=== PATIENT | female | born 1975 | race Caucasian/White ===

== ENCOUNTER 2019-10-11 13:09 | Outpatient (CLI) | payer BC ==
--- NOTE | 2019-10-11 14:17 | ULT ---
EXAM: Pelvic ultrasound HISTORY: Pelvic pain and bleeding COMPARISON: None TECHNIQUE: Multiple grayscale and color Doppler images were obtained in a transabdominal and transvag inal pelvic ultrasound. Spectral analysis of the Doppler waveforms of the ovaries were performed. FINDINGS: CERVIX: No evidence of nabothian cysts. UTERUS: Normal in size. A small heterogeneous area in the anterior fundal wall measuring 1.6 cm in si ze could represent a small fibroid. ENDOMETRIAL STRIPE: 12 mm. No free fluid is seen in the pelvis. RIGHT OVARY: Normal flow without focal mass. LEFT OVARY: Normal flow without focal mass. IMPRESSION: Questionable small uterine fibroid
== END 2019-10-11 13:10 | disposition home or self-care (01) ==
LOC: SCSULT 13:09
PROVIDERS: ATTEND Nurse Practitioner Family
DX: R10.2 Pelvic and perineal pain (principal); N93.9 Abnormal uterine and vaginal bleeding, unspecified
CPT/HCPCS: 76856

== ENCOUNTER 2019-11-24 14:21 | Outpatient (CLI) | payer BC ==
--- NOTE | 2019-12-12 10:30 | MMO ---
Bilateral MAMMO Bilat Screen [facility]. CLINICAL HISTORY: Patient is 44 years old and is seen for screening. The patient has no family history of breast cancer. The patient has no personal history of cancer. VIEWS: The views performed were: bilateral craniocaudal with tomosynthesis and bilateral mediolateral oblique with tomosynthesis. This study has been interpreted with the assistance of computer-aided detection. MAMMOGRAM FINDINGS: The breasts are heterogeneously dense, which could obscure a lesion on mammography. There is a round mass measuring 13 millimeters with circumscribed margins seen in the lower-outer region of the left breast. In the right breast, there are no suspicious masses, calcifications or areas of architectural distortion. IMPRESSION: MASS IN THE LEFT BREAST REQUIRES ADDITIONAL EVALUATION. AN ULTRASOUND EXAM IS RECOMMENDED. THE RESULTS OF THIS EXAM WERE SENT TO THE PATIENT. ACR BI-RADS Category 0 - Incomplete: Need additional imaging evaluation. [facility] will notify the patient of the need for additional imaging services. MAMMOGRAPHY NOTE: 1. A negative mammogram report should not delay a biopsy if a dominant of clinically suspicious mass is present. 2. Approximately 10% to 15% of breast cancers are not detected by mammography. 3. Adenosis and dense breasts may obscure an underlying neoplasm. Reported by: AZUL VIZCAINO MD Electonically Signed: [id number]
== END 2019-11-24 14:22 | disposition home or self-care (01) ==
LOC: BICMAMMO 14:21
PROVIDERS: ATTEND Family Medicine
DX: Z12.31 Encounter for screening mammogram for malignant neoplasm of breast (principal); N63.20 Unspecified lump in the left breast, unspecified quadrant
CPT/HCPCS: 77063; 77067

== ENCOUNTER 2020-02-15 10:49 | Outpatient (CLI) | payer BC ==
--- NOTE | 2020-02-15 11:08 | ULT ---
EXAM: US Breast Limited Lt PROVIDED CLINICAL HISTORY: Abnormal screening mammogram COMPARISON: Screening mammogram 11/24/2019 FINDINGS: Limited sonographic interrogation was performed of the lower outer left breast in the region of mammo graphic concern. There are 2 adjacent simple cysts at the 4:00 position of the left breast, in aggregate measuring about 1.4 cm. This corresponds to the mammogram finding. No concerning sonographi c abnormalities are evident. IMPRESSION: Ultrasound reveals simple cysts corresponding to the mammogram finding. Return to annual screening ma mmography recommended. BI-RADS 2 -- benign findings
== END 2020-02-15 10:50 | disposition home or self-care (01) ==
LOC: BICULT 10:49
PROVIDERS: ATTEND Family Medicine
DX: N63.23 Unspecified lump in the left breast, lower outer quadrant (principal); N60.02 Solitary cyst of left breast

== ENCOUNTER 2021-02-13 14:25 | Outpatient (CLI) | payer BC | END 2021-02-13 14:26 | disposition home or self-care (01) | LOC: BICMAMMO 14:25 | PROVIDERS: ATTEND Nurse Practitioner Family | DX: Z12.31 Encounter for screening mammogram for malignant neoplasm of breast (principal) | CPT/HCPCS: 77063; 77067 ==